=== PATIENT | male | born 1955 | race Caucasian/White ===

== ENCOUNTER 2020-07-22 20:56 | Emergency (ER) | payer MEDICARE, OTHER ==
[~2020-07-22] VITALS: Ht 172.7 cm; Wt 79.4 kg
[2020-07-22] MEDS ORDERED: TDAP DIPH,PERTUSS,TET VAC/PF 0.5 ML DISP.SYRIN IM ONE ×2 (21:30→22:11)
[2020-07-22] MEDS ORDERED: CEPH500C2 PO (22:09)
[2020-07-22] MEDS ORDERED: NEOMY/BACITRA/POLYMYXIN B OINT UD PACKET TP ONE ×2 (22:10→22:15)
[2020-07-22] MEDS ORDERED: CEphaleXIN 250 MG CAPSULE ONE (22:10)
[2020-07-22] MEDS ORDERED: CEPH250C PO (22:14)
[2020-07-22] MEDS ORDERED: CEphaleXIN 250 MG CAPSULE PO ONE (22:15)
[2020-07-22 22:25] VITALS: BP 144/90
--- NOTE | 2020-07-22 22:33 | NUR ---
Patient discharged to home in stable condition. Written and verbal after care instructions given. Patient verbalizes understanding of instructions. Stressed follow up or return to ER for worsening s/s. Neurological check complete. Feeling + movement + warmth in injured extremity. Steady gait. Belongings with patient.
== END 2020-07-22 22:45 | disposition home or self-care (01) ==
LOC: ER 20:58
DX: S91.312A Laceration without foreign body, left foot, initial encounter (principal); W29.3XXA Contact with powered garden and outdoor hand tools and machinery, initial encounter; Y93.H9 Activity, other involving exterior property and land maintenance, building and construction; Y92.89 Other specified places as the place of occurrence of the external cause; Y99.8 Other external cause status; Z87.448 Personal history of other diseases of urinary system; Z95.2 Presence of prosthetic heart valve
CPT/HCPCS: 73630; 90715; A4663